=== PATIENT | female | born 1955 ===

== ENCOUNTER 2024-02-03 11:15 | Inpatient (IN) | payer OTHER ==
[~2024-02-03] VITALS: Ht 157.5 cm; Wt 54.4 kg
[~2024-02-03 11:15] MED LIST: TOPROL XL50 M1 PO
[2024-02-03 14:12] VITALS: BP 115/73
[2024-02-03 15:19] VITALS: BP 129/82
[2024-02-03 16:02] LABS: RH POSITIVE
[2024-02-06] MEDS ORDERED: CEFAZOLIN SODIUM 1,000 MG VIAL IV SCH ×2 (08:45→17:00)
[2024-02-06] MEDS ORDERED: KETOROLAC TROMETHAMINE 30 MG VIAL IV ONE ×3 (08:45→13:00)
[2024-02-06] MEDS ORDERED: MORPHINE SULFATE 4 MG/ML CARTRIDGE IV PRN (08:45)
[2024-02-06] MEDS ORDERED: CHLORHEXIDINE GLUCONATE 120 ML BOTTLE TOP ONE (08:45)
[2024-02-06] MEDS ORDERED: RINGERS SOLUTION,LACTATED 1,000 ML IV SCH (08:45)
[2024-02-06] MEDS ORDERED: METRONIDAZOLE/SODIUM CHLORIDE 500 MG/100 ML PIGGYBACK IV SCH (08:45)
[2024-02-06] MEDS ORDERED: POVIDONE-IODINE 118 ML BOTT TOP ONE (08:45)
[2024-02-06] MEDS ORDERED: HEMOSTATIC MATRIX WITH THROMBIN KIT TOP ONE (08:45)
[2024-02-06] MEDS ORDERED: SURGIFLO APPLICATOR 1 EACH APPL TOP ONE (08:45)
[2024-02-06] MEDS ORDERED: MORPHINE SULFATE 4 MG/ML VIAL IV ONE (10:50)
[2024-02-06] MEDS ORDERED: ACETAMINOPHEN 500 MG GEL..CAP PO SCH (12:00)
[2024-02-06] MEDS ORDERED: KETOROLAC TROMETHAMINE 30 MG VIAL IV SCH (12:00)
[2024-02-06] MEDS ORDERED: SIMETHICONE 125 MG CAPSULE PO SCH (13:00)
[2024-02-06 14:26] LABS: HEMATOCRIT 37.4 % (36.0-45.00); HEMOGLOBIN 12.7 g/dL (12.0-15.00); MEAN CELL VOLUME 88.8 fL (80.00-100.00); MEAN CORPUSCULAR HEMOGLOBIN 30.1 pg (27.00-32.0); MEAN CORPUSCULAR HGB CONC 33.9 g/dl (32.0-36.0); PLATELET COUNT 209 K/uL (150-450); RED BLOOD COUNT 4.21 M/uL (4.00-6.00); RED CELL DISTRIBUTION WIDTH 13.6 % (11.5-14.5)
[2024-02-06 15:10] VITALS: BP 129/82; O2SAT 97
[2024-02-06 15:16] LABS: ALBUMIN 3.8 gm/dL (3.4-5.0); CALCIUM 8.8 mg/dL (8.5-10.1); CREATININE SERUM 0.65 mg/dL (0.55-1.02); GFR 90.11; PHOSPHOROUS 3.6 mg/dL (2.5-4.9); POTASSIUM 4.32 mEq/L (3.5-5.1)
[2024-02-06] MEDS ORDERED: METOCLOPRAMIDE HCL 5 MG/ML VIAL IV SCH (17:00)
[2024-02-06 18:11] VITALS: BP 136/80
[2024-02-06] MEDS ORDERED: FAMOTIDINE/PF 20 MG/2 ML VIAL IV PUSH SCH (21:00)
[2024-02-06] MEDS ORDERED: DOCUSATE SODIUM 100MG CAP PO SCH (21:00)
[2024-02-06] MEDS ORDERED: GABAPENTIN 300 MG CAPSULE PO SCH (21:00)
[2024-02-07 01:17] LABS: HEMOGLOBIN 10.9 g/dL (12.0-15.00); MEAN CELL VOLUME 90.1 fL (80.00-100.00); MEAN CORPUSCULAR HEMOGLOBIN 30.6 pg (27.00-32.0); MEAN CORPUSCULAR HGB CONC 33.9 g/dl (32.0-36.0); PLATELET COUNT 200 K/uL (150-450); RED BLOOD COUNT 3.56 M/uL (4.00-6.00); RED CELL DISTRIBUTION WIDTH 13.3 % (11.5-14.5)
[2024-02-07 01:29] VITALS: BP 90/56; O2SAT 98
[2024-02-07 01:49] LABS: ALBUMIN 3.2 gm/dL (3.4-5.0); CALCIUM 8.3 mg/dL (8.5-10.1); CREATININE SERUM 0.61 mg/dL (0.55-1.02); GFR 96.96; PHOSPHOROUS 3.8 mg/dL (2.5-4.9); POTASSIUM 3.93 mEq/L (3.5-5.1)
[2024-02-07 05:58] VITALS: BP 92/57; O2SAT 99
[2024-02-07] MEDS ORDERED: ENOXAPARIN SODIUM 40 MG/0.4 ML SYRINGE SUBCUTANEO SCH (09:00)
[2024-02-07 09:07] VITALS: BP 92/55
== END 2024-02-07 12:36 | disposition home or self-care (01) | DRG 743 ==
LOC: O/R 02-06 06:00 → SURH 02-06 07:00 → OB/GYN 02-06 14:58
PROVIDERS: Obstetrics & Gynecology; ADMIT Obstetrics & Gynecology Gynecologic Oncology; ATTEND Obstetrics & Gynecology Gynecologic Oncology
PROC: 0UT74ZZ Resection of Bilateral Fallopian Tubes, Percutaneous Endoscopic Approach (ICD-10-PCS; 2024-02-06)
PROC: 0UT24ZZ Resection of Bilateral Ovaries, Percutaneous Endoscopic Approach (ICD-10-PCS; 2024-02-06)
PROC: 07BC4ZZ Excision of Pelvis Lymphatic, Percutaneous Endoscopic Approach (ICD-10-PCS; 2024-02-06)
PROC: 0UT94ZZ Resection of Uterus, Percutaneous Endoscopic Approach (ICD-10-PCS; principal; 2024-02-06 07:00)
DX: N85.02 Endometrial intraepithelial neoplasia [EIN] (principal); D25.9 Leiomyoma of uterus, unspecified; D36.0 Benign neoplasm of lymph nodes; Z20.822 Contact with and (suspected) exposure to COVID-19